=== PATIENT | female | born 1980 | race African-American/Black ===

== ENCOUNTER 2017-05-12 18:43 | Emergency (ER) | payer BC ==
[~2017-05-12] VITALS: Ht 157.5 cm; Wt 86.6 kg
[~2017-05-12 18:43] MED LIST: IRON325; LIALDA1.2 GM PO; NORCO 5-325 TA1 EACH
== END 2017-05-12 21:24 | disposition home or self-care (01) ==
LOC: ER 18:43
DX: T19.2XXA Foreign body in vulva and vagina, initial encounter (principal); N76.0 Acute vaginitis; X58.XXXA Exposure to other specified factors, initial encounter; Y93.89 Activity, other specified; Y92.89 Other specified places as the place of occurrence of the external cause; Y99.8 Other external cause status